=== PATIENT | male | born 2005 | race Caucasian/White ===

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

== ENCOUNTER 2024-07-01 00:03 | Emergency (ER) | payer MEDICAID, OTHER ==
[~2024-07-01] VITALS: Ht 185.4 cm; Wt 102.3 kg
[2024-07-01 00:06] VITALS: BP 137/98; RESP 18; TEMP 98.3; O2SAT 99
[2024-07-01 00:08] VITALS: PULSE 118; O2SAT 99
== END 2024-07-01 00:51 | disposition left against medical advice (07) ==
LOC: ER 00:03
DX: M54.9 Dorsalgia, unspecified (principal); Z53.21 Procedure and treatment not carried out due to patient leaving prior to being seen by health care provider

== ENCOUNTER 2024-07-28 04:20 | Emergency (ER) | payer OTHER ==
[~2024-07-28] VITALS: Ht 170.2 cm; Wt 73.0 kg
[2024-07-28 04:26] VITALS: O2SAT 100
[2024-07-28] MEDS ORDERED: HYDR-459 MT (04:48)
[2024-07-28 04:56] VITALS: BP 127/86; PULSE 84; RESP 16; TEMP 36.66960; O2SAT 100
[2024-07-28] MEDS: HYDROXYZINE 25MG TABLET PO ONE (04:57)
== END 2024-07-28 05:40 | disposition home or self-care (01) ==
LOC: ER 04:20
DX: F15.10 Other stimulant abuse, uncomplicated (principal); F41.9 Anxiety disorder, unspecified
CPT/HCPCS: 99283

== ENCOUNTER 2024-07-28 06:07 | Emergency (ER) | payer OTHER ==
[~2024-07-28] VITALS: Ht 185.4 cm; Wt 95.0 kg
[~2024-07-28 06:07] MED LIST: HYDR-459 MT
[2024-07-28 06:13] VITALS: O2SAT 97
[2024-07-28 06:32] VITALS: BP 149/97; PULSE 114; RESP 16; TEMP 98.9; O2SAT 98
== END 2024-07-28 08:16 | disposition home or self-care (01) ==
LOC: ER 06:07
DX: F15.10 Other stimulant abuse, uncomplicated (principal)
CPT/HCPCS: 99281